=== PATIENT | female | born 1970 | race Caucasian/White ===

== ENCOUNTER → 2018-08-01 | Outpatient (CLI) | payer OTHER | LOC: FIMAGING 13:01 | PROVIDERS: ATTEND Obstetrics & Gynecology | DX: Z12.31 Encounter for screening mammogram for malignant neoplasm of breast (principal); Z13.820 Encounter for screening for osteoporosis; M85.89 Other specified disorders of bone density and structure, multiple sites; Z78.0 Asymptomatic menopausal state ==